=== PATIENT | male | born 1955 | race African-American/Black ===

== ENCOUNTER 2018-03-06 12:39 | Emergency (ER) | payer MEDICAID ==
[~2018-03-06] VITALS: Ht 182.9 cm; Wt 68.9 kg
[2018-03-06 12:53] VITALS: BP 143/92
--- NOTE | 2018-03-06 13:23 | Emergency Room Report ---
History of Present Illness General Chief Complaint: General Complaint Source: Patient, Medical Record Present Illness HPI 62-year-old male presents emergency department complaining of 10 out of 10 in severity left lower leg pain and swelling x 1 week. Patient reports pain and tenderness in the left knee with swelling that has been progressive 1 week. Patient also notes that he has swelling of the left ankle and foot with calf tenderness. Patient denies recent travel or immobilization. Patient reports history of knee injury in the past. Patient states that he had a mechanical slip and fall one week ago and his symptoms have been somewhat progressive since. He denies hitting his head. Denies midline neck or back pain. Denies hx of Gout, or recent open skin wounds near affected extremities. Denies fevers or chills. Pain is exacerbated with weight bearing and walking. pt. able to flex and extend knee without severe pain. Denies numbness tingling or loss of sensation or gross motor movements of the extremities, incontinence of bowel or bladder. Denies CP, Palpitations, LOC, AMS, dizziness, Changes in Vision, weakness or a sudden severe headache. Allergies: Coded Allergies: No Known Allergies (Unverified , 03/06/18) Patient History Past Medical History: see triage record Past Surgical History: none Pertinent Family History: none Reviewed Nursing Documentation: PMH: Agreed; PSxH: Agreed Nursing Documentation-PMH Past Medical History: No History, Except For Hx Hypertension: Yes Review of Systems All Other Systems: negative except mentioned in HPI Physical Exam Vital Signs Date Time Temp Pulse Resp B/P (MAP) Pulse Ox O2 Delivery O2 Flow Rate FiO2 03/06/18 12:43 98.0 68 18 143/92 98 Room Air 98.1 Sp02 EP Interpretation: reviewed, normal General Appearance: no apparent distress, alert, GCS 15, non-toxic Head: normocephalic, atraumatic ENT: hearing grossly normal, normal voice Neck: full range of motion Respiratory: lungs clear, normal breath sounds, speaking full sentences Cardiovascular #1: regular rate, rhythm, no edema, normal capillary refill Musculoskeletal: back normal, normal range of motion, swelling - the left knee , left calf, and left ankle. , tender - calf tenderness left leg, swelling to the left ankle and knee, increased temperature to palpation, no appreciable erythema, FROM with pain. no increased laxity Neurologic: alert, oriented x3, responsive, motor strength/tone normal, sensory intact, speech normal, grossly normal Psychiatric: judgement/insight normal Skin: normal color, no rash, warm/dry, well hydrated Medical Decision Making PA Attestation Dr. cruz is my supervising Physician whom patient management has been discussed with. Diagnostic Impression: Primary Impression: Knee pain, left Qualified Codes: M25.562 - Pain in left knee; G89.29 - Other chronic pain Additional Impressions: Left ankle swelling Ankle pain, left Qualified Codes: M25.572 - Pain in left ankle and joints of left foot ER Course 62-year-old male presents emergency department complaining of 10 out of 10 in severity left lower leg pain and swelling x 1 week. Patient reports pain and tenderness in the left knee with swelling that has been progressive 1 week. Patient also notes that he has swelling of the left ankle and foot with calf tenderness. Patient denies recent travel or immobilization. Patient reports history of knee injury in the past. Patient states that he had a mechanical slip and fall one week ago and his symptoms have been somewhat progressive since. He denies hitting his head. Denies midline neck or back pain. Denies hx of Gout, or recent open skin wounds near affected extremities. Denies fevers or chills. Pain is exacerbated with weight bearing and walking. pt. able to flex and extend knee without severe pain. Denies numbness tingling or loss of sensation or gross motor movements of the extremities, incontinence of bowel or bladder. Denies CP, Palpitations, LOC, AMS, dizziness, Changes in Vision, weakness or a sudden severe headache. Ddx considered but are not limited to Fracture, dislocation, contusion, Sprain/ Strain/Spasm, DVT, venous insufficiency, ligamental injury, meniscal injury. Knee effusion just to name a few. Vital signs: are WNL, pt. is afebrile H&PE are most consistent with musculoskeletal injury will perform imaging to r/ o fractures/dislocations. ORDERS: - X-ray Left Knee and Ankle 3 views each - negative for fx, Dislocation, or significant soft tissue injury, per preliminary read in ED, and signed by MARK Laird, my supervising physician has reviewed, and agrees with my interpretation. -Venous Duplex US of the Left Lower Extremity: Negative for DVT ED INTERVENTIONS: -[place] PO Flip wrap applied to the LEFT KNEE and another to the LEFT ANKLE by microbiology technician. Pt. remains neurovascularly intact. -Patient is provided with crutches and instructed on their use DISCHARGE: At this time pt. is stable for d/c to home. Will provide printed patient care instructions, and any necessary prescriptions. Care plan and follow up instructions have been discussed with the patient prior to discharge. Other X-Ray Diagnostic Results Other X-Ray Diagnostic Results #1: X-Ray ordered: Left knee # of Views/Limited Vs Complete: 3 View Indication: Pain EP Interpretation: Yes MARK Xray: Interpretation reviewed, by supervising MD, and agrees with findings. Interpretation: no dislocation, no soft tissue swelling, no fractures Impression: No acute disease Electronically Signed by: Catherine Laird PA-C Other X-Ray Diagnostic Results #2: X-Ray ordered: Left Ankle # of Views/Limited Vs Complete: 3 View Indication: Pain EP Interpretation: Yes MARK Xray: Interpretation reviewed, by supervising MD, and agrees with findings. Interpretation: no dislocation, no soft tissue swelling, no fractures Impression: No acute disease Electronically Signed by: Catherine Laird PA-C CT/MRI/US Diagnostic Results CT/MRI/US Diagnostic Results : Imaging Test Ordered: Venous Duplex Ultra Sound - Left Lower extremity- unilateral Impression Negative for DVT Last Vital Signs Date Time Temp Pulse Resp B/P (MAP) Pulse Ox O2 Delivery O2 Flow Rate FiO2 03/06/18 12:53 98.1 74 18 143/92 100 Room Air 98.1 Disposition: HOME, SELF-CARE Condition: Stable Scripts Hydrocodone Bit/Acetaminophen 5-325* (NORCO 5-325*) 1 Each Tablet 1 TAB ORAL Q6H PRN for For Pain, #10 TAB 0 Refills Prov: Catherine Laird 03/06/18 Diclofenac Sod* (VOLTAREN*) 50 Mg Tablet.dr 50 MG ORAL THREE TIMES A DAY for 7 Days, #21 TAB Prov: Catherine Laird 03/06/18 Referrals: [facility],REFERRING (PCP) Patient Instructions: Foot Sprain, Knee Pain, [id number] Additional Instructions: Take medications as directed. Follow up with your PCP and a [facility] [employer] in 3-5 days, For Knee Replacement Evaluation. If symptoms persist MRI may be required at the discretion of your PCP or Ortho Specialist. --Please review list of primary care clinics, if you do not already have a primary care provider who can give you an Orthopedic Referral. Return sooner to ED if new symptoms occur, or current symptoms become worse. - Please note that this Emergency Department Report was dictated using [employer] technology software, occasionally this can lead to erroneous entry secondary to interpretation by the dictation equipment. Catherine Laird Mar 06, 2018 13:23
[2018-03-06] MEDS ORDERED: HYDROcodone/Acetamin 7.5/325 tab ONE (13:26)
[2018-03-06] MEDS ORDERED: HYDROcodone/Acetamin 7.5/325 tab ORAL ONE (13:30)
[2018-03-06] MEDS ORDERED: DICLOFENAC SODI50 MG ORAL (14:33)
[2018-03-06] MEDS ORDERED: NORCO 5-325 TA1 EACH ORAL (14:33)
[2018-03-06 14:42] VITALS: BP 132/88
--- NOTE | 2018-03-06 14:52 | Diagnostic Imaging Report ---
Indication: Pain Technique: XRAY Knee 3v LT Comparison: None Findings: Limited exam with suboptimal positioning on the lateral view. There is severe degenerative change of the left knee with severe lateral and patellofemoral compartment joint space narrowing, osteophyte formation as well as possible intra-articular loose bodies. No definite acute fracture identified. There is a small suprapatellar joint effusion. No radiopaque foreign body. 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 No acute fracture.
--- NOTE | 2018-03-06 14:53 | Diagnostic Imaging Report ---
Indication: Pain Technique: XRAY Ankle Compl Min 3v L Comparison: None Findings: No acute fracture. Ankle mortise intact on these nonstress views. There is swelling about the medial malleolus. Imaged hindfoot grossly unremarkable. No radiopaque foreign body seen. There are atherosclerotic vascular calcifications. Impression: Swelling about the medial malleolus. No acute fracture.
--- NOTE | 2018-03-07 11:00 | Diagnostic Imaging Report ---
APPROVED REPORT CPT Code: 49057 Present Symptoms Lower Extremity Edema: Left LEFT LEG: Venous imaging reveals a patent deep venous system. There is no evidence of thrombus within the femoral, popliteal or tibial segments. The greater saphenous vein is also within normal limits. Doppler indicates normal spontaneous flow within these segments.
== END 2018-03-06 14:42 | disposition home or self-care (01) ==
LOC: EMR 13:05
DX: M25.562 Pain in left knee (principal); M79.89 Other specified soft tissue disorders; M25.572 Pain in left ankle and joints of left foot; I10 Essential (primary) hypertension
CPT/HCPCS: 93971; 99284

== ENCOUNTER 2018-04-20 06:34 | Day surgery (SDC) | payer MEDICAID ==
--- NOTE | 2018-04-19 14:00 | Pre-Procedure Note/Attestation ---
Pre-Procedure Note/Attestation Complete Prior to Procedure Planned Procedure: left Procedure Narrative: phaco with IOL Indications for Procedure Pre-Operative Diagnosis: cataract Attestation I attest that I discussed the nature of the procedure; its benefits; risks and complications; and alternatives (and the risks and benefits of such alternatives ), prior to the procedure, with the patient (or the patient's legal care support representative). I attest that, if there was a reasonable possibility of needing a blood transfusion, the patient (or the patient's legal care support representative) was given the [facility] standardized written summary, pursuant to the [place] Blood Safety Act ([place] Health and Safety Code # 1645, as amended). I attest that I re-evaluated the patient just prior to the surgery and that there has been no change in the patient's H&P, except as documented below: EMIR DORSEY Apr 19, 2018 14:00
--- NOTE | 2018-04-19 14:02 | Opthalmology H&P ---
Ophthalmology H&P H&P Chief Complaint: decreased vision in left eye HPI Vision Affects Ability to: read, focus/use eyes together, manage personal affairs HPI Narrative blurry vision Exam Visual Acuity: OD: 20/30 Os: 20/100 Tension: OD: 14 OS: 15 Eye Exam: normal OU: external exam, palpebral fissure-width, marginal reflex distance, levator function, corneas, anterior chambers, fundus exam; findings: lens - OD: IOL OS: ns Assessment/Plan Diagnosis: (1) Nuclear age-related cataract, left eye Treatment Plan: cataract extraction w/ lens implant Goals of Treatment: improvement of vision, enhance quality of life Attestation Attestation The risks and benefits of the surgery as well as alternative procedures were explained to the patient in detail. EMIR DORSEY Apr 19, 2018 14:02
[2018-04-20] VITALS (9 sets, daily range): BP systolic 128–149; BP diastolic 81–93
[~2018-04-20] VITALS: Ht 182.9 cm; Wt 70.8 kg
[~2018-04-20 06:34] MED LIST: DICLOFENAC SODI50 MG ORAL; NORCO 5-325 TA1 EACH ORAL
[2018-04-20] MEDS ORDERED: Pilocarpine 2% Opth 15ml Soln ONE (07:00)
[2018-04-20] MEDS ORDERED: Akten 3.5% 1ml Btl LEFT EYE ONE (07:00)
[2018-04-20] MEDS ORDERED: Dexamethasone 4mg/ml vial ONE (07:00)
[2018-04-20] MEDS ORDERED: Tetracaine 0.5% Opth 4ml Soln LEFT EYE ONE (07:00)
[2018-04-20] MEDS ORDERED: Maxitrol Opth Oint 3.5gm ONE (07:00)
[2018-04-20] MEDS ORDERED: Povidone-Iodine 5% opth solution ONE (07:00)
[2018-04-20] MEDS ORDERED: Pred Forte 1% Opth Susp 1ml ONE (07:00)
[2018-04-20] MEDS ORDERED: Proparacaine 0.5% Opth Soln 15ml LEFT EYE ONE (07:00)
[2018-04-20] MEDS: Phenylephrine 10% Opth Soln 5ml LEFT EYE SCH ×3 (12:49→13:06)
[2018-04-20] MEDS: Tropicamide 1% Opth 15ml Soln LEFT EYE SCH ×3 (12:50→13:06)
[2018-04-20] MEDS: Cyclopentolate 1% Opth Sol 2ml LEFT EYE SCH ×3 (12:50→13:06)
[2018-04-20] MEDS: Tobramycin Op Soln 0.3% 5ml LEFT EYE SCH ×3 (12:52→13:06)
[2018-04-20] MEDS: Diclofenac Sod 0.1% Op Soln LEFT EYE SCH ×3 (12:52→13:06)
[2018-04-20] MEDS ORDERED: LR 1000ml ONE (13:00)
[2018-04-20] MEDS ORDERED: fentaNYL 100 mcg/2 mL IV ONE (13:00)
[2018-04-20] MEDS ORDERED: NS Irrig 1000ml ONE (13:00)
[2018-04-20] MEDS ORDERED: Midazolam 2mg/2ml Inj ONE (13:00)
[2018-04-20] MEDS ORDERED: Sterile Water Irrig 1000ml IRRIG ONE (13:00)
[2018-04-20] MEDS ORDERED: AMLODIPINE BESYL5 MG ORAL (13:12)
[2018-04-20] MEDS ORDERED: Sodium Hyaluronate 14 mg/ml 0.85ml ONE (13:18)
[2018-04-20] MEDS ORDERED: BSS 15ml BTL ONE (13:18)
[2018-04-20] MEDS ORDERED: EPINEPHrine 1mg/1ml Amp ONE (13:18)
[2018-04-20] MEDS ORDERED: BSS 500ml btl ONE (13:18)
[2018-04-20] MEDS ORDERED: LR 1000ml 1,000 ML IVLG SCH (13:41)
[2018-04-20] MEDS ORDERED: Labetalol 5mg/ml 20ml vial IV PRN (13:45)
[2018-04-20] MEDS ORDERED: DiphenhydrAMINE 50mg/ml Inj IVP PRN (13:45)
[2018-04-20] MEDS ORDERED: fentaNYL 100 mcg/2 mL IV PRN (13:45)
[2018-04-20] MEDS ORDERED: Midazolam 2mg/2ml Inj IVP PRN (13:45)
[2018-04-20] MEDS ORDERED: Atropine Inj 1mg/10ml Syr IV PRN (13:45)
--- NOTE | 2018-04-20 13:52 | Anethesia Preoperative Eval ---
Anesthesia Pre-op PMH/ROS General Date of Evaluation: Apr 20, 2018 Time of Evaluation: 13:00 Anesthesiologist: hi ASA Score: ASA 3 Mallampati Score Class I : Soft palate, uvula, fauces, pillars visible Class II: Soft palate, uvula, fauces visible Class III: Soft palate, base of uvula visible Class IV: Only hard plate visible Mallampati Classification: Class II Surgeon: brionna Diagnosis: cataract left eye Surgical Procedure: cataract extraction w/ iol implant left eye Anesthesia History: none Family History: no anesthesia problems Allergies: Coded Allergies: No Known Allergies (Unverified , 03/06/18) Medications: see eMAR Past Medical History Cardiovascular: Reports: HTN Anesthesia Pre-op Phys. Exam Physician Exam Last Vital Signs Date Time Temp Pulse Resp B/P (MAP) Pulse Ox O2 Delivery O2 Flow Rate FiO2 04/20/18 13:09 Room Air 04/20/18 12:53 98.0 58 18 146/92 (110) 96 98.0 Constitutional: NAD Neurologic: CN 2-12 intact Cardiovascular: RRR Respiratory: CTA Gastrointestinal: S/NT/ND Airway Exam Mallampati Score: Class II MO: limited Neck: flexible TMD: 2fb ROM: limited Teeth: missing, loose Anesthesia Pre-op A/P Risk Assessment & Plan Assessment: asa3 Plan: mac Status Change Before Surgery: No Pre-Antibiotics Drug: Vidhya Estes MD Apr 20, 2018 13:52
--- NOTE | 2018-04-20 15:01 | Immediate Post-Op Evaluation ---
Immediate Post-Op Evalulation Immediate Post-Op Evalulation Procedure: cataract extraction w/ iol implant left eye Date of Evaluation: Apr 20, 2018 Time of Evaluation: 13:57 IV Fluids: 600ml lr Blood Products: none Estimated Blood Loss: negligible Blood Pressure Systolic: 149 Blood Pressure Diastolic: 93 Pulse Rate: 60 Respiratory Rate: 18 O2 Sat by Pulse Oximetry: 100 Temperature (Fahrenheit): 97.7 Pain Score (1-10): 0 Nausea: No Vomiting: No Complications none Patient Status: awake, reacts, patent Hydration Status: adequate Drug: Vidhya Estes MD Apr 20, 2018 15:01
--- NOTE | 2018-04-20 15:02 | 48 Hour Post Anesthesia Eval ---
Post Anesthesia Evaluation Procedure: cataract extraction w/ iol implant left eye Date of Evaluation: Apr 20, 2018 Time of Evaluation: 13:59 Blood Pressure Systolic: 135 0: 86 Pulse Rate: 55 Respiratory Rate: 18 Temperature (Fahrenheit): 97.7 O2 Sat by Pulse Oximetry: 99 Airway: patent Nausea: No Vomiting: No Pain Intensity: 0 Hydration Status: adequate Cardiopulmonary Status: stable Mental Status/LOC: patient returned to baseline Post-Anesthesia Complications: none Follow-up care needed: N/A Vidhya Turcios MD Apr 20, 2018 15:02
--- NOTE | 2018-04-21 09:31 | Brief Operative Note ---
Immediate Post Operative Note Operative Note Chief Complaint: blurry vision Pre-op Diagnosis: cataract, OS Procedure: phaco with IOL, OS Post-op Diagnosis: Pseudophakia Post-op Diagnosis: same as pre-op Findings: consistent w/pre-op dx studies Surgeon: Arabella Anesthesiologist: Elijah Rhodes Anesthesia: MAC Specimen: none Complications: none Condition: stable Fluids: LR Estimated Blood Loss: none Drains: none Implant(s) used?: Yes EMIR DORSEY Apr 21, 2018 09:31
--- NOTE | 2018-04-21 09:33 | Operative Note - PDOC ---
Operative Note Operative Note Date of Operation/Procedure: Apr 20, 2018 Chief Complaint: blurry vision Pre-op Diagnosis: cataract, OS Procedure: phaco with IOL, OS Post-op Diagnosis: Pseudophakia Post-op Diagnosis: same as pre-op Operative Findings: consistent w/pre-op dx studies Surgeon: Arabella Anesthesiologist: Elijah Rhodes Anesthesia: MAC Specimen: none Complications: none Condition: stable Fluids: LR Estimated Blood Loss: none Drains: none Implant(s) used?: Yes Indications for Procedure cataract Description of Procedure This patient has been complaining visually significant cataract in the affected eye with the best corrected visual acuity under moderate glare conditions worse. The patient complains of difficulties with glare in performing activities of daily living and wants to manage personal affairs with comfort and accuracy and see well enough to move with safety at home and outdoors. The risks, benefits and alternatives of the procedure were discussed with the patient in the office prior to scheduling surgery. All questions from the patient were answered after the surgical procedure was explained in detail. The risks of the procedure as explained to the patient include, but are not limited to, pain, infection, bleeding, loss of vision, retinal detachment, need for further surgery, loss of lens nucleus, double vision, etc. Alternative procedures were discussed which include, to do nothing or seek a second opinion. Informed consent for this procedure was obtained from the patient. The patient was referred to a primary care physician for a cardiopulmonary clearance prior to surgery, after proper evaluation was done patient was properly scheduled for outpatient surgery. The patient was brought to the operating room where the anesthesiologist established I.V. lines and cardiac monitoring leads. Mild intravenous sedation was administered. The patient was then prepared with a 5% solution of povidone -iodine to the conjunctival fornix and lashes, and a 5% solution of povidone- iodine to the lids and periorbital skin. The patient was then draped in the usual sterile fashion. A lid speculum was then placed in the operative eye. A keratome blade was then used to create a biplanar incision into the anterior chamber. Viscoelastics was then instilled into the anterior chamber. A 3-mm single pass clear corneal incision was made just anterior to the vascular arcade of the temporal limbus using a keratome. A 5- to 5.5-mm anterior capsulorrhexis was created. The nucleus was hydrodissected and hydrodelineated, and was freely movable in the capsular bag. The nucleus was then phacoemulsified using a quadrantic divide-and -conquer technique. Following the deep groove formation, the lens was split bimanually and the resultant quadrants and cortical material was removed under a vacuum burst-mode phacoemulsification. Peripheral cortex was removed with the irrigation and aspiration handpiece. The capsular bag was expanded with viscoelastic. The intraocular lens was then inspected for right power and size and thought to be satisfactory. The implant was inspected under the microscope and found to be free of defects. The implant was inserted into the cartridge system under viscoelastic and placed in the capsular bag. The trailing haptic was positioned with the cartridge system. Viscoelastics was removed from the anterior chamber using the irrigation and aspiration unit. The corneal wound was then tested for leaks and none were found. The lid speculum were then removed. Sponge and needle counts were correct. An eye patch and shield were placed over the operative eye. The patient was taken to the recovery room in stable condition. There were no complications. The patient tolerated the procedure well. The patient was then transferred to the ambulatory surgery unit in stable and satisfactory condition , was given detailed written instructions and asked to follow up in the office the next day. EMIR DORSEY Apr 21, 2018 09:33
== END 2018-04-20 15:10 | disposition home or self-care (01) ==
LOC: SUR 06:34
DX: H25.12 Age-related nuclear cataract, left eye (principal); M17.12 Unilateral primary osteoarthritis, left knee; R01.1 Cardiac murmur, unspecified; I10 Essential (primary) hypertension
CPT/HCPCS: 66984; J0171; J1100; J2250; J3010; J3370; J7120; V2632; Z7512; 94003; 94150